=== PATIENT | male | born 1970 | race Caucasian/White ===

== ENCOUNTER 2021-02-11 12:45 | Emergency (ER) | payer BC, OTHER ==
[2021-02-11] MEDS ORDERED: ACETAMINOPHEN 500 MG TABLET (FP) PO ONE (13:07)
[2021-02-11] MEDS ORDERED: ACETAMINOPHEN 500 MG TABLET (FP) ONE (13:19)
[2021-02-11 13:52] VITALS: BP 147/81; PULSE 82; TEMP 98.9; BMI 29.6
== END 2021-02-11 15:23 | disposition home or self-care (01) ==
LOC: FER 12:45
DX: S82.61XA Displaced fracture of lateral malleolus of right fibula, initial encounter for closed fracture (principal); W10.8XXA Fall (on) (from) other stairs and steps, initial encounter
CPT/HCPCS: 72100-TC-FY; 73523-TC-FY; 73562-TC-RT-FY; 73610-TC-RT-FY; 73630-TC-RT-FY; 99284-25